=== PATIENT | male | born 1960 | race Caucasian/White ===

== ENCOUNTER 2022-03-18 15:48 | Emergency (ER) | payer OTHER ==
[~2022-03-18] VITALS: Ht 188 cm; Wt 72.6 kg
== END 2022-03-18 16:55 | disposition home or self-care (01) ==
LOC: ER 16:05
DX: M25.552 Pain in left hip (principal); M25.551 Pain in right hip; G89.29 Other chronic pain; H61.23 Impacted cerumen, bilateral
CPT/HCPCS: 99282

== ENCOUNTER 2022-03-23 08:10 | Emergency (ER) | payer OTHER ==
[~2022-03-23] VITALS: Ht 188 cm; Wt 72.6 kg
[2022-03-23] MEDS ORDERED: TETANUS/DIPHTHERIA TOX ADULT 0.5 ML SYR IM ONE (09:00)
[2022-03-23] MEDS ORDERED: ACETAMINOPHEN 325 MG TAB ONE (09:12)
== END 2022-03-23 09:43 | disposition home or self-care (01) ==
LOC: ER 08:26
DX: S50.311A Abrasion of right elbow, initial encounter (principal); V19.9XXA Pedal cyclist (driver) (passenger) injured in unspecified traffic accident, initial encounter; Y93.55 Activity, bike riding; Y92.89 Other specified places as the place of occurrence of the external cause; F17.210 Nicotine dependence, cigarettes, uncomplicated
CPT/HCPCS: 90471; 90714; 99282

== ENCOUNTER 2022-06-25 20:16 | Emergency (ER) | payer OTHER ==
[~2022-06-25] VITALS: Ht 188 cm; Wt 72.6 kg
[2022-06-25] MEDS ORDERED: IBUPROFEN 200 MG TAB PO STA (21:57)
== END 2022-06-25 22:00 | disposition home or self-care (01) ==
LOC: ER 20:20
DX: M54.50 Low back pain, unspecified (principal); G89.29 Other chronic pain

== ENCOUNTER 2022-11-10 22:19 | Emergency (ER) | payer OTHER ==
[~2022-11-10] VITALS: Ht 188 cm; Wt 72.6 kg
[2022-11-10] MEDS ORDERED: SODIUM CHLORIDE 0.9% 1000ML 1,000 ML IV STA (23:06)
[2022-11-10 23:32] LABS: BASOPHILS # (AUTO) 0.1 (0.0-0.1); BASOPHILS % 0.9 % (0.0-1.0); EOSINOPHILS # (AUTO) 0.3 (0.0-0.4); EOSINOPHILS % 4.3 % (0.0-6.0); HEMATOCRIT 36.6 % (38.2-49.6); HEMOGLOBIN 11.6 g/dL (14.0-18.0); LYMPHOCYTES % 34.5 % (18.0-39.1); MEAN CORPUSCULAR HGB CONC 31.7 g/dL (31-35); MEAN CORPUSCULAR VOLUME 94.6 fL (81-99); MONOCYTES # (AUTO) 0.6 (0.2-0.8); MONOCYTES % 10.2 % (4.4-11.3); NEUTROPHILS # (AUTO) 2.9 (2.1-6.9); NEUTROPHILS % 49.8 % (38.7-80.0); PLATELET COUNT 206 x10e3/uL (140-360); RED BLOOD COUNT 3.87 x10e6/uL (4.3-5.7); RED CELL DISTRIBUTION WIDTH 16.3 % (11.7-14.4)
[2022-11-10 23:50] LABS: ALANINE AMINOTRANSFERASE 16 IU/L (0-55); ALBUMIN 3.1 g/dL (3.5-5.0); ALBUMIN/GLOBULIN RATIO 0.7 (0.8-2.0); ALKALINE PHOSPHATASE 69 IU/L (40-150); ANION GAP 11.8 mmol/L (8-16); BLOOD UREA NITROGEN 15 mg/dL (7-26); BUN/CREATININE RATIO 20 (6-25); CALCIUM 8.6 mg/dL (8.4-10.2); CARBON DIOXIDE 27 mmol/L (22-29); CHLORIDE 103 mmol/L (98-107); CREATINE KINASE 194 IU/L (30-200); CREATININE, SERUM 0.74 mg/dL (0.72-1.25); GLUCOSE 96 mg/dL (74-118); POTASSIUM 3.8 mmol/L (3.5-5.1); SODIUM 138 mmol/L (136-145)
[2022-11-10 23:53] LABS: LIPASE 21 U/L (8-78)
[2022-11-11] MEDS ORDERED: AZITHROMYCIN250 MG PO (00:17)
== END 2022-11-11 00:21 | disposition home or self-care (01) ==
LOC: ER 22:28
DX: J18.9 Pneumonia, unspecified organism (principal); F20.9 Schizophrenia, unspecified; F31.9 Bipolar disorder, unspecified; Z59.00 Homelessness unspecified
CPT/HCPCS: 36415; 71045; 80053; 80320; 82550; 82553; 83690; 83880; 84484; 85025; 93005; 99283; J7030